=== PATIENT | female | born 1990 | race Caucasian/White ===

== ENCOUNTER 2019-02-06 07:30 | Inpatient (IN) | payer OTHER ==
[~2019-02-06] VITALS: Ht 160 cm; Wt 109.3 kg
[2019-03-13 06:14] VITALS: BP 129/76
[2019-03-13 13:25] VITALS: BP 104/61
== END 2019-03-18 09:23 | disposition home or self-care (01) | DRG 513 ==
LOC: MU 03-13 06:01
PROVIDERS: ADMIT Obstetrics & Gynecology
PROC: 0UB20ZZ Excision of Bilateral Ovaries, Open Approach (ICD-10-PCS; principal; 2019-03-13 07:30)
DX: D27.0 Benign neoplasm of right ovary (principal); D27.1 Benign neoplasm of left ovary
CPT/HCPCS: G0378; J0690; J1170; J2405; J2704; J2710; J3010; J3490; J7120